=== PATIENT | female | born 1955 ===

== ENCOUNTER 2025-05-12 06:19 | Day surgery (SDC) | payer MEDICARE, OTHER, SELFPAY | END 2025-05-12 09:20 | disposition home or self-care (01) | LOC: GI 06:19 | PROVIDERS: ATTENDING PHYSICIAN Internal Medicine Gastroenterology | DX: R10.13 Epigastric pain (principal); K44.9 Diaphragmatic hernia without obstruction or gangrene; K31.89 Other diseases of stomach and duodenum; K29.50 Unspecified chronic gastritis without bleeding | CPT/HCPCS: 43239; 88305; 88342 ==